=== PATIENT | female | born 1940 | race Caucasian/White ===

== ENCOUNTER → 2017-05-05 | Outpatient (CLI) | payer MEDICARE, OTHER ==
[~2017-05-05] MED LIST: ALDACTAZIDE 251 TAB PO; ASPIRIN81 M1 PO; Diltiazem240 MG PO; KCL PO; MOBIC15 MG PO; VITAMIN C100 M2 PO; VITAMIN E100 I2 PO; ZANTAC 150150 MG PO
== END | disposition home or self-care (01) ==
LOC: MAMMO 09:29
DX: N63 Unspecified lump in breast (principal)

== ENCOUNTER → 2019-03-30 | Outpatient (CLI) | payer MEDICARE, OTHER | END | disposition home or self-care (01) | LOC: MAMMO 02:08 | DX: Z12.31 Encounter for screening mammogram for malignant neoplasm of breast (principal) ==